=== PATIENT | male | born 1990 | race Hispanic/Latino ===

== ENCOUNTER 2017-10-29 16:57 | Emergency (ER) | payer SELFPAY ==
[2017-10-29] MEDS ORDERED: Fluorescein Opthalmic Strip ONE (17:22)
[2017-10-29] MEDS ORDERED: Proparacaine 0.5% Opth 15 ML BOT ONE (17:23)
== END 2017-10-29 17:47 | disposition home or self-care (01) ==
LOC: ERS 16:57
DX: T15.02XA Foreign body in cornea, left eye, initial encounter (principal); F17.210 Nicotine dependence, cigarettes, uncomplicated; X58.XXXA Exposure to other specified factors, initial encounter
CPT/HCPCS: 65220

== ENCOUNTER 2019-03-28 10:50 | Emergency (ER) | payer SELFPAY ==
[2019-03-28] MEDS ORDERED: Ondansetron PF 4 MG/2 ML Vial ONE (11:10)
[2019-03-28 11:34] LABS: Band 15 % (5-11); Eosinophils 3 % (0-10); Hemoglobin 17.2 g/dL (14.0-18.0); Lymphocytes 8 % (21-51); MDiff Complete? YES; Mean Corpuscular Hemoglobin 29.8 pg (27.0-31.0); Mean Corpuscular Volume 90.2 fL (78.0-98.0); Mean Platelet Volume 7.5 fL (7.4-10.4); Monocytes 1 % (0-10); Neutrophil 73 % (42-75); Platelet Count 311 thou/uL (130-400); RBC Distribution Width 12.6 % (11.5-14.5); Red Blood Cell (RBC) Count 5.78 mill/uL (4.70-6.10); White Blood Cell (WBC) Count 21.5 thou/uL (4.8-10.8)
[2019-03-28 12:14] LABS: ALT (SGPT) 16 U/L (8-55); AST (SGOT) 28 U/L (5-34); Alkaline Phosphatase 73 U/L (40-150); Anion Gap 13 mmol/L (10-20); BUN (Urea Nitrogen) 14 mg/dL (8.9-20.6); Bilirubin, Total 0.5 mg/dL (0.2-1.2); Calc. Creatinine Clearance 0 mL/min (70-130); Calcium 10.2 mg/dL (7.8-10.44); Carbon Dioxide 25 mmol/L (22-29); Chloride 105 mmol/L (98-107); Estimated GFR-MDRD 88; Glucose 91 mg/dL (70-105); Lipase 10 U/L (8-78); Potassium 5.2 mmol/L (3.5-5.1); Sodium 138 mmol/L (136-145)
[2019-03-28] MEDS ORDERED: MEROPENEM 1 GM/50 ML 1 GM in Premix Bag 1 BAG IVPB SCH (12:30)
--- NOTE | 2019-03-28 12:31 | CT ---
CT Abdomen Pelvis W Con HISTORY:Abdominal pain nausea vomiting and diarrhea. COMPARISON: 04/02/2014 study. FINDINGS: The lung bases appear clear of any infiltrative process. The liver, spleen, pancreas and gallbladder regions appear unremarkable. Right and left adrenal glands and right and left kidneys are normal in size. There is no significant periaortic or mesenteric adenopathy. There is a lack of intra-abdominal fat. There is a mild amount of fluid seen within small and large bowel without distention. This could indicate an enteritis. Flui d is also consistent with the history of diarrhea. CT of pelvis performed with contrast: The appendix is difficult to definitively identify. No evidence for appendicitis. No free fluid, adenopathy or mass. IMPRESSION: Fluid seen within both small and large bowel without any distended bowel loops. This coul d indicate a enteritis.
[2019-03-28 12:36] LABS: Bilirubin Negative (Negative); Blood, Urine Negative (Negative); Clarity TURBID (Clear); Glucose, Urine (Dipstick) Negative (Negative); Leukocyte Negative (Negative); Nitrite Negative (Negative); Protein, Urine (Dipstick) Trace mg/dL (Neg-Trace); Specific Gravity, Urine 1.027 (1.002-1.036); Urobilinogen 0.2 mg/dL (0.2-1.0); pH, Urine 5.5 (5.0-9.0)
[2019-03-28] MEDS ORDERED: ISOVUE-370 76%-LOCM 1 ML ONE (13:00)
== END 2019-03-28 13:08 | disposition home or self-care (01) ==
LOC: ERS 10:50
DX: K52.9 Noninfective gastroenteritis and colitis, unspecified (principal); F17.210 Nicotine dependence, cigarettes, uncomplicated
CPT/HCPCS: 74177; 80053; 81003; 83690; 85025; 87040; 87086; 87804; 96361; 96365; 96375; J2185; J2405; Q9966